=== PATIENT | female | born 2000 | race Caucasian/White ===

== ENCOUNTER 2021-08-24 17:58 | Day surgery (SDC) | payer OTHER ==
[2021-08-24 18:43] VITALS: BMI 39.9
[2021-08-24] MEDS ORDERED: hydrALAZINE 20 MG/ML VIAL SLOW IVP PRN (18:47)
[2021-08-24] MEDS ORDERED: Acetaminophen 500 MG TAB PO SCH (19:15)
[2021-08-24 19:39] LABS: Creatinine, Urine 74.23 mg/dL (47-110); Protein, Urine Random Quant Less than 10 mg/dL (1-14)
[2021-08-24 20:27] LABS: #Eosinphils 0.1 10x3/uL (0.0-0.5); #Monocytes 0.5 10x3/uL (0.0-1.1); #Neutrophils 6.3 10x3/uL (1.5-8.4); %Basophils 0.2 % (0.0-2.0); %Eosinophils 0.9 % (0.0-6.0); %Lymphocytes 21.1 % (18.0-47.0); %Monocytes 5.3 % (0.0-10.0); Hemoglobin 11.6 g/dL (12.0-15.5); Mean Corpuscular Hemoglobin 28.6 pg (27.0-33.0); Platelet Count 213 10x3/uL (150-450); RBC Distribution Width 13.9 % (11.5-14.5); Red Blood Cell (RBC) Count 4.06 10x6/uL (3.90-5.03); White Blood Cell (WBC) Count 8.8 10x3/uL (3.5-10.5)
[2021-08-24 20:37] LABS: ALT (SGPT) 9 U/L (8-55); AST (SGOT) 12 U/L (5-34); Albumin 3.3 g/dL (3.5-5.0); Alkaline Phosphatase 108 U/L (40-110); Anion Gap 13 mmol/L (10-20); BUN (Urea Nitrogen) 4 mg/dL (7.0-18.7); Bilirubin, Total 0.4 mg/dL (0.2-1.2); Calc. Creatinine Clearance 231 mL/min (70-130); Calcium 8.9 mg/dL (7.8-10.44); Carbon Dioxide 20 mmol/L (22-29); Chloride 107 mmol/L (98-107); Globulin 2.4 g/dL (2.4-3.5); Glucose 80 mg/dL (70-105); Potassium 3.3 mmol/L (3.5-5.1); Protein, Total 5.7 g/dL (6.0-8.3); Sodium 137 mmol/L (136-145)
== END 2021-08-24 21:10 | disposition home or self-care (01) ==
LOC: CSHLD/OP 17:58
PROVIDERS: ATTEND Obstetrics & Gynecology
DX: O99.891 Other specified diseases and conditions complicating pregnancy (principal); R03.0 Elevated blood-pressure reading, without diagnosis of hypertension; M54.50 Low back pain, unspecified; O99.283 Endocrine, nutritional and metabolic diseases complicating pregnancy, third trimester; E87.6 Hypokalemia; Z3A.34 34 weeks gestation of pregnancy
CPT/HCPCS: 80053; 82570; 84156; 85025

== ENCOUNTER 2021-09-29 09:17 | Outpatient (CLI) | payer BC, OTHER | END 2021-09-29 09:18 | disposition home or self-care (01) | LOC: CSHLAB 09:17 | PROVIDERS: ATTEND Advanced Practice Midwife | DX: Z20.822 Contact with and (suspected) exposure to COVID-19 (principal) | CPT/HCPCS: 87811 ==

== ENCOUNTER 2021-09-29 19:00 | Inpatient (IN) | payer BC, OTHER ==
[2021-10-01] MEDS ORDERED: Bupivacaine PF 0.5% 30 ML VIAL ONE (11:09)
[2021-10-01] MEDS ORDERED: Methylergonovine 0.2 MG/ML VIAL IM PRN (22:17)
[2021-10-01] MEDS ORDERED: Ondansetron PF 4 MG/2 ML Vial IVP PRN (22:17)
[2021-10-01] MEDS ORDERED: hydrALAZINE 20 MG/ML VIAL SLOW IVP PRN (22:17)
[2021-10-01] MEDS ORDERED: Ibuprofen 800 MG TAB PO PRN (22:17)
[2021-10-01] MEDS ORDERED: Misoprostol 200 MCG TAB PR PRN (22:17)
[2021-10-01] MEDS ORDERED: Promethazine HCl 25 MG/ML VIAL IM PRN (22:17)
[2021-10-01] MEDS ORDERED: Lidocaine 1% (PF) 30 ML VIAL SC PRN (22:17)
[2021-10-01] MEDS ORDERED: HYDROcodone/Acetaminophen 5/325 mg Tablet PO PRN ×2 (22:17)
[2021-10-01] MEDS ORDERED: NS w/ Oxytocin 30 units 500 ML IV SCH ×2 (22:30)
[2021-10-01 23:22] VITALS: BMI 41.5
[2021-10-01 23:32] LABS: Hemoglobin 11.3 g/dL (12.0-15.5); Mean Corpuscular HGB CONC 34.3 g/dL (32.0-36.0); Mean Corpuscular Hemoglobin 27.6 pg (27.0-33.0); Mean Corpuscular Volume 80.2 fl (81.6-98.3); Mean Platelet Volume 10.1 fl (7.4-10.4); Platelet Count 211 10x3/uL (150-450); RBC Distribution Width 13.7 % (11.5-14.5); White Blood Cell (WBC) Count 9.8 10x3/uL (3.5-10.5)
[2021-10-01] MEDS: Misoprostol 100 MCG TAB VAG SCH (23:48)
[2021-10-02 00:07] LABS: Syphilis Antibody Nonreactive (Nonreactive); Syphilis Antibody Index 0.03 S/CO (<1.00 Non-Reactive)
[2021-10-02 00:08] LABS: Hep B Surf Ag Non-Reactive S/CO (NonReactive)
[2021-10-02] MEDS: Misoprostol 100 MCG TAB VAG SCH (03:08)
[2021-10-02] MEDS: Butorphanol Tartrate 1 MG/ML VIAL SLOW IVP PRN ×3 (11:16→16:47)
[2021-10-02] MEDS ORDERED: Lorazepam 2 MG/ML VIAL SLOW IVP PRN (13:11)
[2021-10-02] MEDS ORDERED: hydrALAZINE 20 MG/ML VIAL SLOW IVP PRN (13:11)
[2021-10-02] MEDS ORDERED: Calcium Gluc 4.6 MEQ/10 ML (100 MG/ML) SLOW IVP PRN (13:11)
[2021-10-02] MEDS ORDERED: Labetalol HCl 100 MG/20 ML VIAL SLOW IVP PRN ×2 (13:11)
[2021-10-02] MEDS ORDERED: Magnesium Sulfate 20 gm/500 ml 20 GM/500 ML BAG ONE (13:16)
[2021-10-02] MEDS ORDERED: Fentanyl 2 mcg/Bup 0.1% Cadd 100 ML ONE (19:20)
[2021-10-02] MEDS ORDERED: Ondansetron PF 4 MG/2 ML Vial IVP PRN (20:21)
[2021-10-02] MEDS ORDERED: Promethazine HCl 25 MG/ML VIAL IM PRN (20:21)
[2021-10-02] MEDS ORDERED: diphenhydrAMINE 50 MG/ML VIAL IVP PRN (20:21)
[2021-10-02] MEDS ORDERED: ePHEDrine Sulfate 50 MG/10 ML VIAL SLOW IVP PRN (20:21)
[2021-10-02] MEDS ORDERED: Naloxone HCl 0.4 mg/ml Vial IVP PRN ×2 (20:21)
[2021-10-02] MEDS ORDERED: Acetaminophen 325 MG TAB PO PRN (20:21)
[2021-10-02] MEDS ORDERED: Lactated Ringer's 500 ML IV PRN (20:21)
[2021-10-02] MEDS ORDERED: Moisturizing Cream (Eucerin) 113 GM JAR TOP PRN (20:21)
[2021-10-02] MEDS: Fentanyl 2 mcg/Bupivacaine 0.1% Cassette 100 ML EPIDURAL SCH (20:28)
[2021-10-02] MEDS ORDERED: Communication Order-Pharmacy FS SCH (20:30)
[2021-10-03] MEDS: Magnesium Sulfate 20 gm/500 ml 20 GM/500 ML BAG IVPB SCH ×3 (01:00→18:09)
[2021-10-03] MEDS: Fentanyl 2 mcg/Bupivacaine 0.1% Cassette 100 ML EPIDURAL SCH (04:22)
[2021-10-03] MEDS: Lactated Ringer's 1,000 ML IV SCH (04:23)
[2021-10-03] MEDS ORDERED: Lidocaine 1% (PF) 30 ML VIAL ONE (10:07)
[2021-10-03] MEDS ORDERED: Misoprostol 200 MCG TAB ONE (10:08)
[2021-10-03] MEDS ORDERED: Methylergonovine 0.2 MG/ML VIAL ONE (10:09)
[2021-10-03 12:02] LABS: pH (Cord, venous) 7.361 (7.250-7.350)
[2021-10-03] MEDS ORDERED: Misoprostol 200 MCG TAB VAG PRN (12:41)
[2021-10-03] MEDS ORDERED: Lorazepam 2 MG/ML VIAL SLOW IVP PRN (12:41)
[2021-10-03] MEDS ORDERED: Lanolin Ointment 7 GM TUBE TOP PRN (12:41)
[2021-10-03] MEDS ORDERED: Milk Of Magnesia 30 ML UDCUP PO PRN (12:41)
[2021-10-03] MEDS ORDERED: NS w/ Oxytocin 30 units 500 ML IV SCH (12:41)
[2021-10-03] MEDS ORDERED: Boostrix 0.5 ML (Tdap) VIAL IM ONE (12:41)
[2021-10-03] MEDS ORDERED: Calcium Gluc 4.6 MEQ/10 ML (100 MG/ML) SLOW IVP PRN (12:41)
[2021-10-03] MEDS ORDERED: Bisacodyl 10 MG SUPP PR PRN (12:41)
[2021-10-03] MEDS ORDERED: hydrALAZINE 20 MG/ML VIAL SLOW IVP PRN (12:41)
[2021-10-03] MEDS ORDERED: Benzocaine-Menthol 82.5 ML CAN TOP PRN (12:41)
[2021-10-03] MEDS ORDERED: HYDROcodone/Acetaminophen 5/325 mg Tablet PO PRN (12:41)
[2021-10-03] MEDS ORDERED: Diphenoxylate HCl/Atropine Tablet PO SCH (13:30)
[2021-10-03] MEDS: Ibuprofen 800 MG TAB PO SCH ×2 (13:42→22:00)
[2021-10-03] MEDS: HYDROcodone/Acetaminophen 5/325 mg Tablet PO PRN ×2 (13:43→18:08)
[2021-10-03] MEDS: Carboprost 250 MCG/ML AMP ONE ×2 (13:45→14:18)
[2021-10-03] MEDS ORDERED: Tranexamic Acid 1,000 MG/10 ML VIAL ONE (14:03)
[2021-10-03 14:20] LABS: Hemoglobin 10.6 g/dL (12.0-15.5)
[2021-10-03] MEDS ORDERED: Carboprost 250 MCG/ML AMP ONE (14:21)
[2021-10-03 14:36] LABS: D-Dimer Test 2.08 mg/L FEU (0.19-0.50); INR-International Normal Ratio 0.9; PTT 25.5 sec (22.0-33.0); Prothrombin Time 9.8 sec (9.5-12.1)
[2021-10-03] MEDS: Ampicillin/Sulbactam 3 GM in Sodium Chloride 0.9% 100 ML IVPB SCH ×2 (15:35→22:00)
[2021-10-03] MEDS ORDERED: Ferrous Sulfate 325 MG TAB PO SCH (17:00)
[2021-10-03] MEDS ORDERED: Docusate 100 MG CAP PO SCH (21:00)
[2021-10-04] MEDS: Magnesium Sulfate 20 gm/500 ml 20 GM/500 ML BAG IVPB SCH (02:05)
[2021-10-04] MEDS: Ampicillin/Sulbactam 3 GM in Sodium Chloride 0.9% 100 ML IVPB SCH (06:05)
[2021-10-04] MEDS: Ibuprofen 800 MG TAB PO SCH ×3 (06:16→21:47)
[2021-10-04] MEDS ORDERED: Prenatal Vitamin 1 TAB PO SCH (09:00)
[2021-10-04] MEDS ORDERED: Bisacodyl 10 MG SUPP PR PRN (10:25)
[2021-10-04] MEDS ORDERED: NS w/ Oxytocin 30 units 500 ML IV SCH (10:25)
[2021-10-04] MEDS ORDERED: Milk Of Magnesia 30 ML UDCUP PO PRN (10:25)
[2021-10-04] MEDS ORDERED: hydrALAZINE 20 MG/ML VIAL SLOW IVP PRN (10:25)
[2021-10-04] MEDS ORDERED: Ondansetron PF 4 MG/2 ML Vial IVP PRN (10:25)
[2021-10-04] MEDS ORDERED: HYDROcodone/Acetaminophen 5/325 mg Tablet PO PRN ×2 (10:25)
[2021-10-04] MEDS ORDERED: Benzocaine-Menthol 82.5 ML CAN TOP PRN (10:25)
[2021-10-04] MEDS ORDERED: Boostrix 0.5 ML (Tdap) VIAL IM ONE (10:25)
[2021-10-04] MEDS: Ferrous Sulfate 325 MG TAB PO SCH (16:51)
[2021-10-04] MEDS: Misoprostol 100 MCG TAB VAG SCH (16:52)
[2021-10-04] MEDS: Lactated Ringer's 1,000 ML IV SCH ×3 (16:53→17:12)
[2021-10-04] MEDS: Docusate 100 MG CAP PO SCH (21:52)
[2021-10-05] MEDS: Ibuprofen 800 MG TAB PO SCH (05:11)
[2021-10-05] MEDS: Ferrous Sulfate 325 MG TAB PO SCH (06:56)
[2021-10-05] MEDS: Docusate 100 MG CAP PO SCH ×2 (07:44→07:45)
[2021-10-05 07:48] VITALS: BP 136/60; TEMP 98
[2021-10-05] MEDS ORDERED: Prenatal Vitamin 1 TAB PO SCH (09:00)
== END 2021-10-05 10:47 | disposition home or self-care (01) | DRG 806 ==
LOC: CSHLD 10-01 18:57 → CSHPP 10-04 16:10
PROVIDERS: ADMIT Obstetrics & Gynecology; ATTEND Obstetrics & Gynecology
PROC: 3E0P7VZ Introduction of Hormone into Female Reproductive, Via Natural or Artificial Opening (ICD-10-PCS; 2021-10-02)
PROC: 3E033VJ Introduction of Other Hormone into Peripheral Vein, Percutaneous Approach (ICD-10-PCS; 2021-10-02)
PROC: 10E0XZZ Delivery of Products of Conception, External Approach (ICD-10-PCS; principal; 2021-10-03)
PROC: 0W8NXZZ Division of Female Perineum, External Approach (ICD-10-PCS; 2021-10-03)
DX: O99.892 Other specified diseases and conditions complicating childbirth (principal); O72.1 Other immediate postpartum hemorrhage; Z37.0 Single live birth; O26.893 Other specified pregnancy related conditions, third trimester; Z88.0 Allergy status to penicillin; Z3A.39 39 weeks gestation of pregnancy; Z67.41 Type O blood, Rh negative; R03.0 Elevated blood-pressure reading, without diagnosis of hypertension; O76 Abnormality in fetal heart rate and rhythm complicating labor and delivery; Z20.822 Contact with and (suspected) exposure to COVID-19
CPT/HCPCS: 36415; 51702; 82805; 85014; 85018; 85027; 85049; 85300; 85362; 85379; 85384; 85610; 85730; 86780; 86850; 86870; 86900; 86901; 86922; 87340; 87811; J0295; J0360; J0595; J2405; J2590; J3475; J3490; J7120

== ENCOUNTER 2021-11-09 12:27 | Emergency (ER) | payer BC, OTHER ==
[2021-11-09] MEDS ORDERED: Ondansetron PF 4 MG/2 ML Vial ONE (14:27)
[2021-11-09] MEDS ORDERED: Morphine 2 MG/ML VIAL ONE (14:28)
[2021-11-09 14:30] LABS: #Monocytes 0.5 10x3/uL (0.0-1.1); #Neutrophils 12.3 10x3/uL (1.5-8.4); %Basophils 0.2 % (0.0-2.0); %Eosinophils 0.1 % (0.0-6.0); %Lymphocytes 4.5 % (18.0-47.0); %Monocytes 3.3 % (0.0-10.0); %Neutrophils 91.5 % (40.0-75.0); Hemoglobin 10.2 g/dL (12.0-15.5); Mean Corpuscular HGB CONC 31.9 g/dL (32.0-36.0); Mean Corpuscular Hemoglobin 23.6 pg (27.0-33.0); Mean Corpuscular Volume 73.9 fl (81.6-98.3); Mean Platelet Volume 9.7 fl (7.4-10.4); Platelet Count 314 10x3/uL (150-450); RBC Distribution Width 14.9 % (11.5-14.5); Red Blood Cell (RBC) Count 4.33 10x6/uL (3.90-5.03); White Blood Cell (WBC) Count 13.5 10x3/uL (3.5-10.5)
[2021-11-09 15:01] LABS: ALT (SGPT) 38 U/L (8-55); AST (SGOT) 22 U/L (5-34); Albumin 4.2 g/dL (3.5-5.0); Alkaline Phosphatase 113 U/L (40-110); Anion Gap 13 mmol/L (10-20); BUN (Urea Nitrogen) 9 mg/dL (7.0-18.7); Bilirubin, Total 0.4 mg/dL (0.2-1.2); Calc. Creatinine Clearance 0 mL/min (70-130); Calcium 9.4 mg/dL (7.8-10.44); Carbon Dioxide 21 mmol/L (22-29); Chloride 108 mmol/L (98-107); Estimated GFR 81; Globulin 2.5 g/dL (2.4-3.5); Glucose 99 mg/dL (70-105); Lipase 11 U/L (8-78); Potassium 3.4 mmol/L (3.5-5.1); Protein, Total 6.7 g/dL (6.0-8.3); Sodium 139 mmol/L (136-145)
[2021-11-09 15:11] LABS: Bilirubin Neg (Negative); Blood, Urine 25 (Negative); Clarity Clear (Clear); Glucose, Urine (Dipstick) Normal (Negative); Ketone, Urine Negative (Negative); Leukocyte 100 (Negative); Nitrite Negative (Negative); Protein, Urine (Dipstick) Negative (Neg-Trace); Specific Gravity, Urine 1.005 (1.002-1.036); Urobilinogen Normal mg/dL (Less than 2)
[2021-11-09 15:12] LABS: Pregnancy Test - Urine (BHCG) Negative (Negative); Pregu Control Background? CLEAR/WHITE (CLR/WHITE); Pregu Control Bar Appear? YES (CONTROL BAR); Specific Gravity 1.005 (1.002-1.036)
[2021-11-09 15:16] LABS: Bacteria/HPF 1+ HPF (None Seen)
[2021-11-09] MEDS ORDERED: Ketorolac Tromethamine 30 MG/ML VIAL ONE (16:02)
== END 2021-11-09 16:03 | disposition home or self-care (01) ==
LOC: CSHERS 12:27
DX: O99.893 Other specified diseases and conditions complicating puerperium (principal); N94.89 Other specified conditions associated with female genital organs and menstrual cycle; Z87.891 Personal history of nicotine dependence
CPT/HCPCS: 36415; 74176; 80053; 81003; 81015; 81025; 83690; 84702; 85025; 96374; 96375; J1885; J2270; J2405